=== PATIENT | female | born 1985 | race Asian ===

== ENCOUNTER 2024-03-28 09:17 | Outpatient (REF) | payer OTHER, SELFPAY | END 2024-03-28 09:18 | disposition home or self-care (01) | LOC: HO.XRAY 09:17 | PROVIDERS: PCP Internal Medicine; Visit Provider Internal Medicine | DX: J98.8 Other specified respiratory disorders (principal); M54.50 Low back pain, unspecified | CPT/HCPCS: 71046; 72100; 96127 ==

== ENCOUNTER 2024-03-28 09:17 | Outpatient (AMB) | payer OTHER, SELFPAY ==
--- NOTE | 2024-03-28 09:22 | MHC.PC.OV ---
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 by: Friend Allergies No Known Allergies Allergy (Verified 03/28/24 09:42) Medication List - Last Reconciled 03/28/24 by Soren Dalton MD No Known Home Meds Tobacco use date assessed: 03/28/24 Dental Screening Dental Screen Date: 03/28/24 Did you have a dental visit in the last 12 months?: Yes Did you have a dental problem in the last 6 months where you did not have access to dental care?: No Was dental information given to patient?: Patient has dentist 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 Details Patient comes in today for her annual physical examination and to establish care - is a new patient to the practice States that she recently got (to one of my patients) and is relocating here from [facility], 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 She reports that she has never really had a complete physical exam done in her entire life and she has only sought medical attention in the past (very rarely) when needed for acute issues She states that she has been experiencing on and off low back pain for years States that she has been able to manage her low back pain so far with [id number] medications and therapeutic massages when needed She is attributing her low back pain to her carrier as a washing machine loader - states that she has been working for over 12 years now and work often involves prolonged standing She denies any injury or trauma to her lower back in the past She denies any headaches or dizziness Denies any chest pains; reports that she has been experiencing occasional shortness of breaths/chest tightness and notes (+) PRATT at times Also relates (+) on and off coughing and states that she coughs up some yellowish phlegm at times Relates (+) long-term exposure to acrylic fumes when she is at work, which she thinks is the main cause of her recurrent respiratory symptoms she denies any history of asthma or chronic lung conditions and she denies smoking No nausea/vomiting, no abdominal pain No change in bowel habits noted Denies any acute urinary symptoms States that she has not had her annual gynecology exam and pap smear done in years [facility] Medical History (Updated 04/04/24 @ 04:52 by Soren Dalton MD) No pertinent past medical history Surgical History (Updated 03/28/24 @ 09:44 by Soren Dalton MD) No pertinent past surgical history Social History Housing: House Patient Tobacco Use Status: Never used Tobacco e-Cigarette/Vaping Use: Never Used service: No Current occupational status: unemployed Current occupational exposures/hazards: No Cognitive needs: No Hearing needs: No Vision needs: No Questionnaire PHQ-9 Over the last 2 weeks, how often have you been bothered by any of the following problems? 1. Little interest or pleasure in doing things: not at all 2. Feeling down, depressed, or hopeless: not at all 3. Trouble falling or staying asleep, or sleeping too much: not at all 4. Feeling tired or having little energy: not at all 5. Poor appetite or overeating: not at all 6. Feeling bad about yourself - or that you are a failure or have let yourself or your family down: not at all 7. Trouble concentrating on things, such as reading the newspaper or watching television: not at all 8. Moving or speaking so slowly that other people could have noticed. Or the opposite - being so fidgety or restless that you have been moving around a lot more than usual: not at all 9. Thoughts that you would be better off or of hurting yourself in some way: not at all Total score: 0 Depression Screening Interpretation: Negative Depression Screening Done: Yes 74223 - PHQ-9 Billing: Yes Source: Developed by Drs. Shai Dietrich, Wendy Wilson, Maurice Steen and colleagues, with an educational niyah from [employer]. Thrive Questionnaire Date Thrive assessed: 03/28/24 I am a: Patient What is your living situation today?: I have a steady place to live Within the past 12 months, did the food you bought not last and you didn't have the money to get more?: Never true Within the past 12 months, did you worry whether your food would run out before you got money to buy more?: Never true Do you have trouble paying for medicines?: No Do you have trouble getting transportation to medical appointments?: No Do you have trouble paying your heating and electricity bill?: No Do you have trouble taking care of your child, family member or friend?: No Do you have trouble with day-to-day activities such as bathing, preparing meals, shopping, managing finances, etc.?: No Are you currently unemployed and looking for a job?: No Are you interested in more education?: No Please select the resources that you would like help with: None Currently or been in a relationship where the following occur: No concerns reported THRIVE Score: 0 AUDIT C Alcohol Use Questionnaire (AUDIT-C) 1. How often do you have a drink containing alcohol?: 2-4 times a month 2. How many drinks containing alcohol do you have on a typical day when you are drinking?: 1 or 2 3. How often do you have six or more drinks on one occasion?: Never Total Score: 2 Score Reviewed/Action Taken: Yes SHAWN-7 AMB Questionnaire SHAWN-7 Date SHAWN - 7 assessed: 03/28/24 Feeling nervous, anxious, or on edge: 0 = Not at all Not being able to stop or control worryin = Not at all Worrying too much about different things: 0 = Not at all Trouble relaxin = Not at all Becoming easily annoyed or irritable: 0 = Not at all Feeling afraid as if something awful might happen: 0 = Not at all Source: Developed by Drs. Shai Dietrich, Wendy Wilson, Maurice Steen and colleagues, with an educational niyah from [employer]. Review of Systems Const Denies chills, Reports difficulty sleeping, Denies fatigue, Denies fever(s), Denies headache(s) and Denies malaise Eyes Denies blurry vision, Denies change in vision, Denies irritation and Denies itchy eyes ENT Denies dysphagia, Denies dizziness, Denies otalgia, Denies headache(s), Denies nasal congestion, Denies neck pain, Denies odynophagia, Denies sinus pain and Denies sore throat Card Denies chest pain, Denies rapid heart rate, Denies irregular heart rhythm, Denies palpitations and Reports dyspnea on exertion (mild) Resp Reports chest congestion (recurrent; chest feels tight at times), Reports cough (coughs up yellowish phlegm at times), Denies hemoptysis, Reports dyspnea on exertion (mild) and Denies wheezing GI Denies abdominal pain, Denies bloating, Denies constipation, Denies dysphagia, Denies heartburn, Denies diarrhea, Denies nausea, Denies odynophagia and Denies vomiting Denies hematuria, Denies urinary frequency, Denies dysuria, Denies urinary incontinence and Denies urinary urgency Musc Reports back pain (over the lower back - see HPI), Denies arthralgias, Denies joint swelling, Denies muscle weakness and Denies neck pain Skin/Breast Denies breast pain, Denies breast mass, Denies change in pigmentation, Denies lesions, Denies rash and Denies unusual bruising Neuro Denies dizziness, Denies headache(s) and Denies paresthesias Psych Denies anxiety and Denies depression Endo Denies fatigue and Denies palpitations Jv/Lymph Denies easy bruising Aller/Immun Denies itchy eyes and Denies wheezing Physical exam (Primary Care) Vital Signs: Last Vital Signs Pulse 75 03/28/24 09:23 BP 110/76 03/28/24 09:23 Pulse Ox 98 03/28/24 09:23 Oxygen Delivery Method Room Air 03/28/24 09:23 BMI result Body Mass Index 35.2 Tobacco/Smoking Status: Tobacco use Status Tobacco use date assessed 03/28/24 03/28/24 09:28 Patient Tobacco Use Status Never used Tobacco 03/28/24 09:28 e-Cigarette/Vaping Use Never Used 03/28/24 09:28 PHQ-9: PHQ-9 Score PHQ-9: Total score 0 03/28/24 15:27 Depression Screening Interpretation: Negative Thrive Assessment: Date of Thrive Assessment Date Thrive assessed 03/28/24 03/28/24 09:28 Currently or been in a relationship where the following occur: No concerns reported Const General: no acute distress, alert and awake Orientation/consciousness: patient oriented x3 HENMT Head: Yes normocephalic and Yes atraumatic Ears: external ears normal, TM's normal bilaterally and EAC's normal General nose exam: No nasal discharge present Face and sinus: Yes normal facial exam and Yes sinuses nontender Teeth and gingiva: dentition normal Throat: Yes posterior oropharynx normal and Yes tonsils normal (no TP congestion) Eyes Eyelids: Yes eyelids normal Conjunctivae: conjunctivae normal Pupils: Equal, round and reactive pupils present EOM: EOMs intact bilaterally Neck Neck: Yes supple and No lymphadenopathy Thyroid: Thyroid normal Resp Auscultation: no rales, rhonchi (occasional) throughout, no wheezes and diminished lung sounds bilateral Cardio Rate: regular rate Rhythm: regular rhythm Heart sounds: no murmurs GI Palpation (GI): Soft to palpation, nontender and No hepatosplenomegaly present Auscultation: normal bowel sounds General: Yes no CVA tenderness Back/Spine/Pelvis Back: no CVA tenderness Thoracic/Lumbar Spine: lumbar spinal tenderness Skin Lesions: no lesions Rashes: no rashes Neuro General: patient oriented x3, moves all extremities, no focal motor deficits and CN's II-XI intact bilaterally Cranial nerves: Yes Equal, round and reactive pupils present Cognition (Neuro): normal cognition Gait exam (Neuro): Normal gait present Extrem General: Yes no clubbing, cyanosis or edema Coding Level of Care Code New Pt Prev Care 18-39yr([id number] Diagnoses Annual physical exam Z00.00 Midline low back pain without sciatica, unspecified chronicity M54.50 Chronicity: unspecified Back pain laterality: midline Sciatica presence: without sciatica Recurrent cough R05.8 Frontal headache R51.9 Insomnia, unspecified type G47.00 Insomnia type: unspecified Cervical cancer screening Z12.4 Additional Codes PHQ-9 - 34298 - PHQ-9 Billing: Yes ([id number]) Assessment & Plan Assessment & Plan (1) Annual physical exam: Code(s): Z00.00 - Encounter for general adult medical examination without abnormal findings Category: Medical Plan: Check labs She has not had her annual gynecologic exam and pap smear done in years and is overdue (2) Low back pain: Code(s): M54.50 - Low back pain, unspecified Category: Medical Qualifiers: Chronicity: unspecified Back pain laterality: midline Sciatica presence: without sciatica Qualified Code(s): M54.50 - Low back pain, unspecified Plan: Have discussed activity and weight lifting restrictions with patient to minimize aggravating her low back pain Will send her for lumbar spine x-rays for further evaluation (3) Recurrent cough: Code(s): R05.8 - Other specified cough Category: Medical Plan: We will send her for chest x-rays for further evaluation (4) Frontal headache: Code(s): R51.9 - Headache, unspecified Category: Medical Plan: Patient reports experiencing these recently Have advised her that the likely due to stress/tension She can continue taking OTC Tylenol PRN for now which patient states provide her with adequate relief of headaches (5) Insomnia: Code(s): G47.00 - Insomnia, unspecified Category: Medical Qualifiers: Insomnia type: unspecified Qualified Code(s): G47.00 - Insomnia, unspecified Plan: Sleep hygiene discussed I have advised that she can try some OTC Melatonin at bedtime to see if these will sleep better (6) Cervical cancer screening: Code(s): Z12.4 - Encounter for screening for malignant neoplasm of cervix Category: Medical Plan: Will refer her to gynecology for her annual pap smear and gynecology exam Plan Follow up in 4 to 5 months Orders: Orders Complete Blood Count Auto Diff 03/28/24 D64.9 - Anemia, unspecified, Z00.00 - Encounter for general adult medical examination without abnormal findings Comprehensive [place]. Panel Fast 03/28/24 E78.00 - Pure hypercholesterolemia, unspecified, Z00.00 - Encounter for general adult medical examination without abnormal findings Lipid Panel 03/28/24 E78.00 - Pure hypercholesterolemia, unspecified, Z00.00 - Encounter for general adult medical examination without abnormal findings UA CC w/rflx Micro + Cult 03/28/24 R30.0 - Dysuria, Z00.00 - Encounter for general adult medical examination without abnormal findings XR chest 2V 03/28/24 J98.8 - Other specified respiratory disorders XR lumbar spine 2-3V 03/28/24 M54.50 - Low back pain, unspecified TSH reflex Free T4 03/28/24 E78.00 - Pure hypercholesterolemia, unspecified, Z00.00 - Encounter for general adult medical examination without abnormal findings Vitamin D 25-OH Total 03/28/24 E55.9 - Vitamin D deficiency, unspecified, Z00.00 - Encounter for general adult medical examination without abnormal findings 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
[2024-03-28 09:23] VITALS: BP 110/76; PULSE 75; O2SAT 98; BMI 35.2
== END 2024-03-28 09:58 | disposition home or self-care (01) ==
PROVIDERS: PCP Internal Medicine; Visit Provider Internal Medicine
DX: Z00.00 Encounter for general adult medical examination without abnormal findings (principal); M54.50 Low back pain, unspecified; R05.8 Other specified cough; R51.9 Headache, unspecified; G47.00 Insomnia, unspecified; Z12.4 Encounter for screening for malignant neoplasm of cervix

== ENCOUNTER 2024-05-09 08:29 | Outpatient (REF) | payer OTHER, SELFPAY ==
[2024-05-09 08:41] LABS: MANUAL DIFF FLAG NO
[2024-05-09 09:18] LABS: Basophils Absolute Auto 0.1 X10*3/uL (0.0-0.2); Basophils Percent Auto 0.7 % (0-2); Eosinophils Absolute Auto 0.3 X10*3/uL (0.0-0.4); Eosinophils Percent Auto 3.5 % (0-4); Hematocrit 36.1 % (37.0-47.0); Hemoglobin 10.9 g/dl (12.0-16.0); Imm Gran Abs Auto 0.02 X10*3/uL (0.00-0.03); Imm Gran Pct Auto 0.3 % (0.0-0.4); Lymphocytes Absolute Auto 1.9 X10*3/uL (1.2-4.9); Lymphocytes Percent Auto 26.3 % (20-40); Mean Corpuscular HGB Conc 30.2 g/dl (31.0-35.0); Mean Corpuscular Hemoglobin 18.9 pg (27.0-33.0); Mean Platelet Volume 10.5 fL (9.4-12.3); Monocytes Absolute Auto 0.5 X10*3/uL (0.1-1.2); Monocytes Percent Auto 6.8 % (2-11); Neutrophils Absolute Auto 4.5 x10*3/uL (2.0-8.3); Neutrophils Percent Auto 62.4 % (45-73); Platelet Count 366 X10*3/uL (160-400); Red Blood Count 5.77 X10*6/uL (4.20-5.50); Red Cell Distribution Width 15.9 % (11.0-16.0); White Blood Count 7.2 X10*3/uL (4.8-10.8)
[2024-05-09 09:19] LABS: Mean Corpuscular Volume 62.6 fL (80.0-98.0)
[2024-05-09 09:27] LABS: Appearance Urine Cloudy; Color Urine Yellow; Glucose Urine UA Negative (Negative); Leukocyte Esterase Urine Negative (Negative); Nitrite Urine Negative (Negative); PH >= 9.0 (5.0-9.0); Urine Blood Negative (Negative); Urine Ketones Negative (Negative); Urine Protein Trace mg/dL (Neg-Trace)
[2024-05-09 09:53] LABS: Alanine Aminotransferase 20 U/L (0-31); Albumin Level 3.9 g/dL (3.5-5.0); Alkaline Phosphatase 71 U/L (39-117); Anion Gap 9 (12-20); Aspartate Amino Transferase 27 U/L (5-31); Bilirubin Total 0.9 mg/dL (0.0-1.0); Blood Urea Nitrogen 9 mg/dL (9-16); Calcium 8.7 mg/dL (8.4-10.2); Carbon Dioxide 25 mmol/L (22-29); Chloride 106 mmol/L (96-108); Cholesterol 163 mg/dL (<200); Estimated Glomerular Filt Rate > 60; Glucose Fasting 85 mg/dL (60-99); HDL Cholesterol 53 mg/dL (>40); LDL Cholesterol Calculated 98 mg/dL (<100); Potassium 4.1 mmol/L (3.3-5.1); Sodium 136 mmol/L (135-145); Total Protein 7.7 g/dL (6.5-8.0); Triglycerides 61 mg/dL (<150)
[2024-05-09 10:15] LABS: TSH reflex Free T4 1.91 uIU/mL (0.32-4.0); Vitamin D 25-OH Total 25.1 ng/mL (>30)
== END 2024-05-09 08:30 | disposition home or self-care (01) ==
LOC: HO.LAB 08:29
PROVIDERS: PCP Internal Medicine; Visit Provider Internal Medicine
DX: Z00.00 Encounter for general adult medical examination without abnormal findings (principal); D64.9 Anemia, unspecified; E78.00 Pure hypercholesterolemia, unspecified; R30.0 Dysuria; E55.9 Vitamin D deficiency, unspecified
CPT/HCPCS: 36415; 80053; 80061; 81003; 82306; 84443; 85025

== ENCOUNTER 2024-12-13 12:21 | Outpatient (REF) | payer OTHER, SELFPAY | END 2024-12-13 12:22 | disposition home or self-care (01) | LOC: HO.LNP 12:21 | PROVIDERS: PCP Internal Medicine; Visit Provider Advanced Practice Midwife | DX: Z01.419 Encounter for gynecological examination (general) (routine) without abnormal findings (principal); N64.4 Mastodynia | CPT/HCPCS: 87626; 88175 ==

== ENCOUNTER 2024-12-13 12:21 | Outpatient (AMB) | payer OTHER, SELFPAY ==
--- NOTE | 2024-12-13 12:55 | MHC.OFFVIS ---
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 no complaints Provider Service Representative Required: No Information Interpreted: non-clinical & clinical Administrator: Administrator Present (Bri) Accompanied by: Self / Same As Patient Allergies No Known Allergies Allergy (Verified 12/13/24 12:58) Medication List - Last Reconciled 12/13/24 by Juanita Lopez LPN cholecalciferol (vitamin D3) 50 mcg PO DAILY 90 days ferrous sulfate (Feosol) 325 mg PO DAILY 90 days Is last menstrual period known: Yes Last menstrual period: 11/22/24 Post menopausal: No Patient : No Do you need a note to return to daycare/school/sports/work: No HPI Comments Details: Patient is a premenopausal woman presenting for new patient annual examination. 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 Regular monthly menses x 3d. Currently is sexually active, uses condoms. Does not plan a future .. She denies vaginal itching or irritation. STI screening offered; she declines. She tries to eat healthy and stays active with exercise-goes to the gym. Denies family history of breast, ovarian or colon cancer. First pap today. Mammogram: never PFSH Medical History Breast pain No pertinent past medical history Surgical History No pertinent past surgical history Family History Father Prostate cancer Social History Housing: House Patient Tobacco Use Status: Never used Tobacco e-Cigarette/Vaping Use: Never Used service: No Current occupational status: unemployed Current occupational exposures/hazards: No Cognitive needs: No Hearing needs: No Vision needs: No Female Reproductive History Menstrual Age of Menarche: 10 Date of last menstrual period: 11/22/24 control method: condoms Total pregnancies: 1 Number of Living Children: 1 History of abnormal pap smear: No History of STI: No Review of Systems Const All systems reviewed & are unremarkable except as noted in HPI and below Reports as per HPI Eyes Reports no additional complaints ENT Reports no additional complaints Card Reports no additional complaints Resp Reports no additional complaints GI Reports as per HPI and Reports no additional complaints Reports as per HPI Musc Reports no additional complaints Skin/Breast Reports as per HPI Neuro Reports no additional complaints Psych Reports no additional complaints Endo Reports no additional complaints Jv/Lymph Reports no additional complaints Aller/Immun Reports no additional complaints Physical Exam Vital Signs: Last Vital Signs BP 102/68 12/13/24 12:57 BMI result Body Mass Index 33.2 Const General: cooperative, healthy appearing, no acute distress, well developed and alert Orientation/consciousness: patient oriented x3 HEENT Head: Yes normal to inspection Eyes General: appearance normal, both eyes and all related structures Neck Neck: Yes normal visual inspection Thyroid: Thyroid normal Chest Chest palpation & inspection: normal inspection of the chest and other (no puckering, dimpling, peau de orange, retraction, discharge, masses) Breast/axilla inspection: normal inspection of the breasts Breast/axilla palpation: normal palpation of the breasts Resp Effort & Inspection: normal respiratory effort GI Inspection: Yes normal to inspection Palpation (GI): Soft to palpation Rectal Exam - Female: deferred General: Yes bladder normal to palpation External Female Exam: normal external appearance and normal appearance of the urethra Speculum Exam - Vagina: normal appearance of the vagina, normal palpation and normal vaginal discharge Speculum Exam - Cervix: normal appearance of the cervix, normal palpation and Other cervical findings present (bled with Pap) Bimanual exam- vagina & uterus: normal bimanual exam, normal palpation, uterine size normal, bladder normal to palpation, normal palpation and non-tender Bimanual Exam- Adnexa, other: no masses Skin General skin exam: no rashes or lesions noted Rashes: no rashes Neuro General: patient oriented x3 Cognition (Neuro): normal cognition Extrem General: Yes normal to inspection Psych Attitude: cooperative Thought process: Normal thought process present Assessment & Plan Assessment & Plan (1) Breast pain: Code(s): N64.4 - Mastodynia Category: Medical Plan: Discussed: Breast tenderness, normal exam today. Advised to discontinue underwire clothing, change to sports bra. Clothing maybe contributing to discomfort observe for now. Bilateral mammogram for diagnostics and left breast ultrasound at the region of 2-3 o'clock left breast to be evaluated further. Call if symptoms are worsening. Follow up pending results. The patient expressed understanding and agreement with the plan of care. All of her questions and concerns were addressed to the best of my ability. Total time I personally spent on visit and management today: ?15 minutes. Time spent included review of pertinent office notes in the electronic health record; review of laboratory and imaging results; review of personal family medical history; performing physical exam; discussing diagnosis and plan of care with the patient; documenting the encounter in the EMR. (2) Encounter for well woman exam with routine gynecological exam: Code(s): Z01.419 - Encounter for gynecological examination (general) (routine) without abnormal findings Category: Medical Plan Discussed: Current recommendations for pap smears per ASCCP guidelines. Pap obtained today. Breast awareness and periodic breast exams. Mammogram yearly-see above notes. Maintain a healthy lifestyle including a well balanced diet and routine exercise. Use condoms for prevention. Patient verbalizes understanding and agrees to the plan of care. She was given opportunity to ask questions and all questions were answered to the best of my ability. 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 This note is constructed using voice recognition software. While every effort has been made to ensure accuracy, food mixer repairer errors may have been included. Orders: Orders MM tomosynthesis diagnostic BI Today N64.4 - Mastodynia, Z12.39 - Encounter for other screening for malignant neoplasm of breast US breast LT limited Today N64.4 - Mastodynia Pap Smear Today Z01.419 - Encounter for gynecological examination (general) (routine) without abnormal findings HPV High risk Today Z01.419 - Encounter for gynecological examination (general) (routine) without abnormal findings Coding Level of Care Code Est Pt Level 2 (13358) New Pt Prev Care 40-64y(23649) Diagnoses Breast pain N64.4 Encounter for well woman exam with routine gynecological exam Z01.419
[2024-12-13 12:57] VITALS: BP 102/68; BMI 33.2
== END 2024-12-13 13:44 | disposition home or self-care (01) ==
LOC: HO.HWS 12:21
PROVIDERS: PCP Internal Medicine; Visit Provider Advanced Practice Midwife
DX: Z01.419 Encounter for gynecological examination (general) (routine) without abnormal findings (principal); N64.4 Mastodynia
CPT/HCPCS: 99212; 99386; 99459